=== PATIENT | female | born 1945 | race Caucasian/White ===

== ENCOUNTER 2021-05-23 10:50 | Emergency (ER) | payer OTHER ==
[2021-05-23] MEDS ORDERED: Ketorolac Tromethamine 30 MG/ML VIAL ONE (11:59)
== END 2021-05-23 11:59 | disposition home or self-care (01) ==
LOC: CSHERS 10:50
DX: M25.462 Effusion, left knee (principal); M17.12 Unilateral primary osteoarthritis, left knee; E03.9 Hypothyroidism, unspecified; W06.XXXA Fall from bed, initial encounter
CPT/HCPCS: 96372; J1885

== ENCOUNTER 2021-12-06 10:09 | Outpatient (CLI) | payer OTHER | END 2021-12-06 10:10 | disposition home or self-care (01) | LOC: CSHMAMMO 10:09 | PROVIDERS: ATTEND Family Medicine | DX: Z12.31 Encounter for screening mammogram for malignant neoplasm of breast (principal); N63.11 Unspecified lump in the right breast, upper outer quadrant | CPT/HCPCS: 77063; 77067 ==

== ENCOUNTER 2022-01-07 12:58 | Outpatient (CLI) | payer OTHER | END 2022-01-07 12:59 | disposition home or self-care (01) | LOC: CSHULT 12:58 | PROVIDERS: ATTEND Family Medicine | DX: N63.11 Unspecified lump in the right breast, upper outer quadrant (principal) ==

== ENCOUNTER 2022-02-26 13:00 | Outpatient (CLI) | payer OTHER | END 2022-02-26 13:01 | disposition home or self-care (01) | LOC: CSHMRI 13:00 | PROVIDERS: ATTEND Specialist | DX: M48.061 Spinal stenosis, lumbar region without neurogenic claudication (principal); M47.816 Spondylosis without myelopathy or radiculopathy, lumbar region; M51.26 Other intervertebral disc displacement, lumbar region; N28.9 Disorder of kidney and ureter, unspecified | CPT/HCPCS: 72148 ==

== ENCOUNTER 2022-05-27 10:38 | Outpatient (CLI) | payer OTHER | END 2022-05-27 10:39 | disposition home or self-care (01) | LOC: CSHMRI 10:38 | PROVIDERS: ATTEND Specialist | DX: M54.12 Radiculopathy, cervical region (principal); M47.812 Spondylosis without myelopathy or radiculopathy, cervical region | CPT/HCPCS: 72141 ==

== ENCOUNTER 2022-07-08 12:21 | Outpatient (CLI) | payer OTHER | END 2022-07-08 12:22 | disposition home or self-care (01) | LOC: CSHMAMMO 12:21 | PROVIDERS: ATTEND Family Medicine | DX: R92.8 Other abnormal and inconclusive findings on diagnostic imaging of breast (principal) | CPT/HCPCS: 77065; G0279 ==

== ENCOUNTER 2022-07-14 13:00 | Outpatient (CLI) | payer OTHER | END 2022-07-14 13:01 | disposition home or self-care (01) | LOC: CSHCT 13:00 | PROVIDERS: ATTEND Family Medicine | DX: S09.90XA Unspecified injury of head, initial encounter (principal); G93.9 Disorder of brain, unspecified | CPT/HCPCS: 70450 ==

== ENCOUNTER 2022-09-13 13:00 | Emergency (ER) | payer OTHER ==
[2022-09-13 13:57] LABS: #Monocytes 0.5 10x3/uL (0.0-1.1); #Neutrophils 8.5 10x3/uL (1.5-8.4); %Basophils 0.2 % (0.0-2.0); %Eosinophils 0.1 % (0.0-6.0); %Lymphocytes 18.8 % (18.0-47.0); %Monocytes 4.4 % (0.0-10.0); %Neutrophils 75.8 % (40.0-75.0); Bilirubin Neg (Negative); Blood, Urine 25 (Negative); Clarity Slightly Cloudy (Clear); Glucose, Urine (Dipstick) Normal (Negative); Hemoglobin 12.3 g/dL (12.0-15.5); Ketone, Urine Negative (Negative); Leukocyte 500 (Negative); Mean Corpuscular HGB CONC 32.5 g/dL (32.0-36.0); Mean Corpuscular Hemoglobin 28.5 pg (27.0-33.0); Mean Corpuscular Volume 87.7 fl (81.6-98.3); Mean Platelet Volume 10.5 fl (7.4-10.4); Nitrite Positive (Negative); Platelet Count 438 10x3/uL (150-450); Protein, Urine (Dipstick) 15 mg/dl (Neg-Trace); RBC Distribution Width 13.7 % (11.5-14.5); Red Blood Cell (RBC) Count 4.32 10x6/uL (3.90-5.03); Urobilinogen Normal mg/dL (Less than 2); White Blood Cell (WBC) Count 11.3 10x3/uL (3.5-10.5)
[2022-09-13 14:09] LABS: Bacteria/HPF 4+ HPF (None Seen); CAUTI Indications for Culture Alt mental st,lethar; Squamous Epithelial 0-3 HPF (0-3); Transitional Epithelial 0-3 HPF (None Seen); WBC/HPF Greater than 50 HPF (0-3)
[2022-09-13 14:10] LABS: Mucous/LPF 2+ LPF (<2+)
[2022-09-13 14:12] LABS: Urine Culture Reflex Yes Yes
[2022-09-13 14:18] LABS: ALT (SGPT) 36 U/L (8-55); AST (SGOT) 42 U/L (5-34); Alkaline Phosphatase 78 U/L (40-110); Anion Gap 13 mmol/L (10-20); BUN (Urea Nitrogen) 14 mg/dL (9.8-20.1); Bilirubin, Total 0.4 mg/dL (0.2-1.2); Calc. Creatinine Clearance 0 mL/min (70-130); Calcium 9.5 mg/dL (7.8-10.44); Carbon Dioxide 24 mmol/L (23-31); Chloride 105 mmol/L (98-107); Estimated GFR 89; Globulin 2.8 g/dL (2.4-3.5); Glucose 118 mg/dL (83-110); Potassium 3.4 mmol/L (3.5-5.1); Protein, Total 6.8 g/dL (5.8-8.1); Sodium 139 mmol/L (136-145)
[2022-09-13] MEDS ORDERED: Ketorolac Tromethamine 30 MG/ML VIAL ONE (14:52)
[2022-09-13] MEDS ORDERED: Metoclopramide HCl 10 MG/2 ML VIAL ONE (14:52)
[2022-09-13] MEDS ORDERED: cefTRIAXone (ROCEPHIN) 2 GM VIAL ONE (14:52)
== END 2022-09-13 15:38 | disposition home or self-care (01) ==
LOC: CSHERS 13:00
DX: N39.0 Urinary tract infection, site not specified (principal); D72.829 Elevated white blood cell count, unspecified; E03.9 Hypothyroidism, unspecified
CPT/HCPCS: 80053; 81001; 83605; 84484; 85025; 87077; 87086; 87186; 93005; 96374; 96375; J0696; J1885; J2765

== ENCOUNTER 2023-02-25 12:30 | Outpatient (CLI) | payer OTHER | END 2023-02-25 12:31 | disposition home or self-care (01) | LOC: CSHRAD 12:30 | PROVIDERS: ATTEND Specialist | DX: M16.12 Unilateral primary osteoarthritis, left hip (principal) ==

== ENCOUNTER 2023-05-19 12:15 | Outpatient (CLI) | payer OTHER | END 2023-05-19 12:16 | disposition home or self-care (01) | LOC: CSHMAMMO 12:15 | PROVIDERS: ATTEND Family Medicine | DX: Z12.31 Encounter for screening mammogram for malignant neoplasm of breast (principal) | CPT/HCPCS: 77063; 77067 ==

== ENCOUNTER 2023-06-08 09:31 | Outpatient (CLI) | payer OTHER | END 2023-06-08 09:32 | disposition home or self-care (01) | LOC: CSHRAD 09:31 | PROVIDERS: ATTEND Physician Assistant Medical | DX: R13.10 Dysphagia, unspecified (principal); K21.9 Gastro-esophageal reflux disease without esophagitis; R19.4 Change in bowel habit; K22.4 Dyskinesia of esophagus | CPT/HCPCS: 74220 ==